=== PATIENT | female | born 1925 | race Caucasian/White ===

== ENCOUNTER 2016-05-06 09:57 | Observation (INO) | payer MEDICARE, OTHER ==
[~2016-05-06] VITALS: Ht 170.2 cm; Wt 73.1 kg
[~2016-05-06 09:57] MED LIST: AMOX-366 PO; ASPI325T32 PO; CEPH-512 PO; CHOL100043 PO; CITA20TA11 PO; DONE5TAB30 PO; LEVO75TA4 PO; METF500T4 PO; OMEP20CA11 PO; POLY17PO6 PO; PRAV40TA PO; PSYL3.4P5 PO
[2016-05-06] MEDS ORDERED: 0.9% Sodium Chloride 1,000 ML IV ONE ×2 (10:07→13:20)
[2016-05-06 10:10] VITALS: BP 102/43; PULSE 58; RESP 21; O2SAT 98
[2016-05-06] MEDS ORDERED: Ondansetron 2 mg/mL 2 mL Inj IV PRN (10:10)
--- NOTE | 2016-05-06 10:22 | ED.REPORT ---
HPI-General Illness Date of Service May 06, 2016 ED Provider: Isaiah Li MD 89-year-old female with a past medical history of TIA, DM2, hypertension, hyperlipidemia, recurrent UTIs, and dementia presents to the ED via EMS accompanied by her daughter/caregiver with a sudden onset dizziness, dyspnea and diaphoresis this morning. The diaphoresis lasted 1 hour before resolving. At onset of this the patient's daughter gave her nitro. She was also given a baby ASA this morning this AM. She also complained of nausea, upper back pain, and a chronic cough. Pt denies fever, chills, vomit and abd pain. She had no sx yesterday. Nursing Notes Stated Complaint: DIZZY, BACK PAIN Chief Complaint: General Complaint Nursing Notes Reviewed: Yes Allergies: Coded Allergies: morphine (Verified Allergy, Severe, Hives, vomiting, diarrhea, 12/23/14) Scheduled Aspirin (Aspirin) 325 Mg Tablet 325 MG PO QAM Cholecalciferol (Vitamin D3) (Vitamin D3) 2,000 Unit Capsule 2,000 UNITS PO QAM Ciprofloxacin (Ciprofloxacin) 250 Mg Tablet 250 MG PO MWF take in AM Citalopram (Citalopram) 20 Mg Tablet 20 MG PO HS Donepezil (Donepezil) 5 Mg Tablet 5 MG PO HS Isosorbide MN ER (Isosorbide MN ER) 30 Mg Tab.er.24h 30 MG PO QAM Levothyroxine (Levothyroxine) 50 Mcg Tablet 50 MCG PO DAILY Magnesium Chloride (Mag64) 64 Mg Tablet.er 128 MG PO BID Metformin (Metformin) 500 Mg Tablet 500 MG PO BIDWM lunch, dinner Metoprolol Succinate ER (Metoprolol Succinate ER) 25 Mg Tab.er.24h 25 MG PO QAM Omeprazole (Omeprazole) 20 Mg Capsule.dr 20 MG PO QAM Pravastatin (Pravastatin) 40 Mg Tablet 40 MG PO HS General Time Seen by MD: 10:01 Chief Complaint Breathing problem Hx Obtained From: Patient, Daughter, Other family..., Maitre D Arrived By: Ambulance Sudden in Onset?: Yes Onset Occurred: 1 - 4 hours ago Symptom Duration: Since onset Location: : Back Quality: Painful Severity: Current: Moderate Associated with: Denies: Fever, Headache, Vomiting Past Medical History Past Medical History Notes: Admission for L1 compression fracture December 2014 Echo December 2014 EF of 60-75% PCP: Dr. Sifuentes Past Medical History Alzheimer's Hypertension. Dementia. Hyperlipidemia. Frequent urinary tract infections. Hypothyroidism. Diabetes mellitus type 2, diet controlled. TIA. Zenker's diverticulum and gastric ulcers. Gastroesophageal reflux disease. Glaucoma. Coronary artery disease. 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 Right hip fracture surgery. Cataract surgery. Varicose vein stripping. Reports: Appendectomy, Cholecystectomy, Hysterectomy Smoking History Never Smoker Social History Alcohol Use: Denies alcohol use Drug Use: Denies drug use Other Social History: Lives with children (lives with daughter who is caregiver ) Ambulatory Status Walker Review of Systems Full Review of Systems Constitutional: Denies: Chills, Fever Respiratory: Reports: Non-productive cough (chronic), Shortness of breath Cardiovascular: Denies: Chest pain GI: Reports: Nausea, Denies: Abdominal pain, Diarrhea, Vomiting Musculoskeletal: Reports: Back pain Skin: Reports Diaphoresis Neurologic: Reports: Dizziness Complete sys rev & neg: except as marked. Physical Exam Vital Signs Vital Signs Date Time Temp Pulse Resp B/P Pulse Ox O2 Delivery O2 Flow Rate FiO2 05/06/16 10:51 51 18 130/74 94 Room Air 05/06/16 10:10 37.0 58 21 102/43 98 Room Air Initial VS: Reviewed Head / Eyes: Atraumatic, Normocephalic, PERRL General/Constitutional: Awake, Alert ENT: Mucous membranes moist Neck: Atraumatic, Full range of motion Respiratory / Chest: Breath sounds NL, Breath sounds = bilat, No respiratory distress, No rales, No rhonchi, No wheezing Cardiovascular: Regular rhythm, Heart sounds NL, No gallop, No murmurs, No rubs , Peripheral circulation NL Heart Rate / Rhythm: Positive: Bradycardia Abdomen: Soft, BS normoactive Tenderness/Guarding/Rebound: Positive: Tender LLQ... (reports that this is not new), Tender LUQ... (reports that this is not new) Organomegaly / Mass / Hernia: Negative: Hepatomegaly, Splenomegaly Back: Atraumatic, Full range of motion, No CVA tenderness Skin: Warm, Dry Neurologic: Oriented X3, Speech NL (conversant) coarse tremor which family reports is baseline Interpretation & Diagnostics Lab Results Interpretation Result Diagram: 05/06/16 1039 05/06/16 1017 Test 05/06/16 10:17 12/30/16 10:34 05/06/16 10:39 Sodium Level 140mEq/L (134-144) Potassium Level 4.2mEq/L (3.5-5.2) Chloride Level 104mEq/L (97-108) Carbon Dioxide Level 20mmol/L (18-29) Blood Urea Nitrogen 20mg/dL (8-27) Creatinine 0.93mg/dL (0.57-1.00) Estimat Glomerular Filtration Rate 81mL/min (>59) Glucose Level 172mg/dL (60-99) Calcium Level 9.4mg/dL (8.5-10.1) Magnesium Level 1.9mg/dL (1.6-2.6) Total Bilirubin 0.4mg/dL (0.0-1.2) Aspartate Amino Transf (AST/SGOT) 18U/L (0-50) Alanine Aminotransferase (ALT/SGPT) 11U/L (0-32) Alkaline Phosphatase 100U/L (25-165) Troponin T < 0.010ug/L (0.0-0.011) Total Protein 6.9g/dL (6.4-8.4) Albumin 3.9g/dL (3.4-5.0) Urine Color Yellow (YELLOW) Urine Appearance Hazy (CLEAR,HAZY) Urine pH 6.0 (5.0-8.0) Urine Specific [place] 1.020 (1.003-1.035) Urine Protein Negativemg/dL (NEG,TRACE) Urine Glucose (UA) Negativemg/dL (NEGATIVE) Urine Ketones Negativemg/dL (NEGATIVE) Urine Occult Blood Trace (NEGATIVE) Urine Nitrite Negative (NEGATIVE) Urine Bilirubin Negative (NEGATIVE) Urine Urobilinogen Normalmg/dL (NORMAL) Urine Leukocyte Esterase Moderate (NEGATIVE) Urine RBC 0-2/hpf (0-2) Urine WBC 6-10/hpf (0-5) Urine Epithelial Cells Few/hpf (NONE-MOD) Urine Crystals None seen (NONE SEEN) Urine Bacteria Few/hpf (NONE-FEW) Urine Hyaline Casts None/lpf (NONE) Urine Granular Casts None seen (NONE SEEN) Urine Waxy Casts None seen (NONE SEEN) Urine Red Blood Cell Casts None seen (NONE SEEN) Urine White Blood Cell Casts None seen (NONE SEEN) Urine Mucus None seen (None Seen) Urine Trichomonas None seen (NONE SEEN) Urine Yeast None (NONE SEEN) Urinalysis Comment Urine Culture Reflexed Indicated White Blood Count 6.4th/mm3 (3.8-10.1) Red Blood Count 4.12mil/mm3 (3.90-5.20) Hemoglobin 12.0g/dL (12.0-15.6) Hematocrit 36.9% (35.0-46.0) Mean Corpuscular Volume 89.6fL (81-100) Mean Corpuscular Hemoglobin 29.1pg (27.0-35.0) Mean Corpuscular Hemoglobin Concent 32.5% (32.0-37.0) Red Cell Distribution Width 13.6% (12.3-15.4) Platelet Count 165bil/L (150-400) Neutrophils (%) (Auto) 50.9% (40-74) Lymphocytes (%) (Auto) 35.1% (14-46) Monocytes (%) (Auto) 6.2% (4-12) Eosinophils (%) (Auto) 6.1% (0-5) Basophils (%) (Auto) 1.4% (0-3) Hold Luna Top Tube Received (Received) General Lab Results Interp 1: Labs reviewed ECG Interpretation ECG Interpretation: Anterior Q waves Low voltage inferiorly No change from previous 02/10/16 Time: 10:16 Interpreted by: ED physician Normal ECG Interpretation: Normal sinus rhythm Rhythm / Conduction: Bradycardia (53) ECG Interpretation: After onset of chest pain. Prolonged MN interval. No acute ST segment changes. Time: 11:20 Interpreted by: ED physician Normal ECG Interpretation: Normal sinus rhythm Rhythm / Conduction: Bradycardia (rate 51) X-Ray Chest Interpretation Chest Xray Interpretation: IMPRESSION: No acute cardiopulmonary disease process. Dictated by: Svitlana Montalvo MD, PhD on 05/06/2016 at 10:57 View: Portable, 1 view Interpretation / Wet Read by: Interpret - Radiologist Re-Eval/Medical Decision Med Decision/Clinical Course 89-year-old female with a near syncopal episode today at home. Has had borderline hypotension and bradycardia here in the emergency department. Did not have a fever or an elevated white blood cell count, lactate is mildly elevated urinalysis is suggestive of infection, chest x-ray negative. I suspect that her bradycardia which may be related to medications contributing to her relative hypotension. My understanding from her current home medication list she is on metoprolol and diltiazem for her atrial fibrillation. Urine and blood cultures have been obtained, we have started antibiotics for urinary tract infection she will be admitted to the hospitalist service. Time of Eval: 10:53 Patient Status: Condition unchanged Re-Evaluation/Progress Note: Now reporting slight chest pain. Pain started after ECG. Code status DNR with limited additional interventions per POLST form. Time of Eval: 11:38 Re-Evaluation/Progress Note: Pt with mild CP still present. Pt and family updated of labs. Time of Eval: 13:18 Patient Status: Condition improved, Pain improved (No CP) Re-Evaluation/Progress Note: Updated pt of labs, ECG and imaging results. Recommended admission. Pt understands and agrees with plan. All questions addressed. Consultation : Referral / Consult Name: Charles Billingsley MD Consulted With: Hospitalist Call Returned at: 14:36 Accounting Systems Manager: Will see patient, Agrees with eval, Agrees with plan, Accepts admit Counseled Regarding: Diagnosis, Lab results, Need for admission Discharge & Departure Primary Impression: Sepsis Sepsis type: sepsis due to unspecified organism Qualified Code: A41.9 - Sepsis, unspecified organism Additional Impressions: Urinary tract infection Urinary tract infection type: site unspecified Hematuria presence: without hematuria Qualified Code: N39.0 - Urinary tract infection, site not specified Bradycardia Disposition: ADMITTED TO HOSPITAL Discharge Condition All VS Reviewed: Yes Condition: Improved Referrals: José Miguel Sifuentes MD (PCP) Scribe Attestation Portions of this note were transcribed by Zenaida Rowland. I, (Dr. Li) personally performed the history, physical exam and medical decision-making; I reviewed and confirmed the accuracy of the information in the transcribed note. Signed by: Zenaida Rowland. 05/06/2016, 1436 copies to: José Miguel Sifuentes MD, Donald L MD May 06, 2016 10:22 Zenaida Rowland May 06, 2016 10:31
[2016-05-06 10:51] VITALS: BP 130/74; PULSE 51; RESP 18; O2SAT 94
[2016-05-06 10:52] LABS: BASOPHILS % (AUTO) 1.4 % (0-3); EOSINOPHILS % (AUTO) 6.1 % (0-5); MONOCYTES % (AUTO) 6.2 % (4-12); Mean Corpuscular Hemoglobin 29.1 pg (27.0-35.0); Mean Corpuscular Volume 89.6 fL (81-100); NEUTROPHILS % (AUTO) 50.9 % (40-74); Platelet Count 165 bil/L (150-400)
[2016-05-06 10:54] LABS: APPEARANCE,URINE HAZY (CLEAR,HAZY); COLOR,URINE YELLOW (YELLOW); OCCULT BLOOD,URINE TRACE (NEGATIVE)
[2016-05-06 10:55] LABS: UROBILINOGEN,URINE NORMAL (NORMAL)
[2016-05-06 10:57] LABS: Magnesium 1.9 mg/dL (1.6-2.6)
--- NOTE | 2016-05-06 10:59 | DRSVH ---
PROCEDURE: X-RAY CHEST ONE VIEW, PORTABLE ([id number]) INDICATIONS: dyspnea TECHNIQUE: One view of the chest was acquired. COMPARISON: [facility], CR, XR CHEST 1VW (PORTABLE), 02/10/2016, 7:25. FINDINGS: Surgical changes and devices: Cholecystectomy clips Lungs and pleura: No pleural effusions or pneumothorax. Lungs are clear. Mediastinum: Mediastinal contours appear normal. Heart size is normal. Bones and chest wall: Chronic appearing left humerus fracture is noted. No suspicious bony lesions. Overlying soft tissues appear unremarkable. IMPRESSION: No acute cardiopulmonary disease process. Dictated by: Svitlana Montalvo MD, PhD on 05/06/2016 at 10:57 Approved by: Svitlana Montalvo MD, PhD on 05/06/2016 at 10:57
[2016-05-06 11:01] LABS: TROPONIN T < 0.010 ug/L (0.0-0.011)
[2016-05-06] MEDS ORDERED: cefTRIAXone Inj 2,000 MG in IV Premix 1 EACH IV ONE (11:40)
[2016-05-06] MEDS ORDERED: 0.9% Sodium Chloride 500 ML IV ONE (11:40)
[2016-05-06] MEDS ORDERED: LEVO50TA6 PO (13:55)
[2016-05-06] MEDS ORDERED: ISOS30TA4 PO (13:55)
[2016-05-06] MEDS ORDERED: CIPR250T3 PO (13:55)
[2016-05-06] MEDS ORDERED: METO25TA99 PO (13:55)
[2016-05-06] MEDS ORDERED: MAGN64TA7 PO (13:55)
[2016-05-06] MEDS ORDERED: CHOL200047 PO (13:55)
[2016-05-06] MEDS ORDERED: Ondansetron 2 mg/mL 2 mL Inj IVPUSH PRN (15:00)
[2016-05-06] MEDS ORDERED: Polyethylene Glycol (PEG) 17 Gm Powder PO PRN (15:00)
[2016-05-06] MEDS ORDERED: Alum-Mag Hydrox-Simeth 30 mL Suspension PO PRN (15:00)
[2016-05-06 15:13] VITALS: BP 92/30; PULSE 68; RESP 16; O2SAT 99
[2016-05-06 15:41] VITALS: BP 95/56; PULSE 55; PULSE 67; RESP 22; O2SAT 99
[2016-05-06] MEDS: 0.9% Sodium Chloride 1,000 ML IV SCH (15:43)
[2016-05-06 16:09] VITALS: BP_SYST 104; BP_SYST 87; BP_DIAS 53; BP_DIAS 54
--- NOTE | 2016-05-06 16:28 | PCM.HPMED ---
Subjective Date of Service May 06, 2016 Primary Provider: Admitting Physician: Charles Billingsley MD Primary Care Physician: José Miguel Sifuentes MD Attending Physician: Charles Billingsley MD Admit Status: From the Emergency Department, Full Admit, Admit to [facility] Team, Remote Telemetry Chief Complaint: Bradycardia and possible sepsis. Syncope this morning. History of Present Illness: This is an 89-year-old female who is feeling well until this morning. She got up out of bed a couple steps and then had a collapse. She cannot really say if she completely passed out or not. She has a significant cognitive impairment with a history of dementia. She denies remembering any chest pain or palpitations before. She denies any chest pain or dyspnea now. In the ED she is a mildly elevated lactic acid and a positive urine dip. She denies any hematuria or dysuria. She also denies recent fevers or chills. She denies difficulty with her appetite. No recent lightheadedness although she was orthostatic in the ED. She does not feel thirsty or dehydrated. She denies recent weakness. No unilateral leg or arm weakness. No fevers or chills. Review of Systems: No headache. She denies head or neck pain. No visual changes. She has not have any hearing issues. She has had some rhinorrhea and a light cough recently. No chest pain. No recent diarrhea also reviewed and otherwise negative except as noted in history of present illness. Allergies Coded Allergies: morphine (Verified Allergy, Severe, Hives, vomiting, diarrhea, 12/23/14) Home Medications Aspirin (Aspirin) 325 Mg Tablet 325 MG PO QAM Cholecalciferol (Vitamin D3) (Vitamin D3) 2,000 Unit Capsule 2,000 UNITS PO QAM Ciprofloxacin (Ciprofloxacin) 250 Mg Tablet 250 MG PO MWF take in AM Citalopram (Citalopram) 20 Mg Tablet 20 MG PO HS Donepezil (Donepezil) 5 Mg Tablet 5 MG PO HS Isosorbide MN ER (Isosorbide MN ER) 30 Mg Tab.er.24h 30 MG PO QAM Levothyroxine (Levothyroxine) 50 Mcg Tablet 50 MCG PO DAILY Magnesium Chloride (Mag64) 64 Mg Tablet.er 128 MG PO BID Metformin (Metformin) 500 Mg Tablet 500 MG PO BIDWM lunch, dinner Metoprolol Succinate ER (Metoprolol Succinate ER) 25 Mg Tab.er.24h 25 MG PO QAM Omeprazole (Omeprazole) 20 Mg Capsule.dr 20 MG PO QAM Pravastatin (Pravastatin) 40 Mg Tablet 40 MG PO HS PMH 1. CAD. 2. TIA. 3. Diabetes mellitus 2. 4. Recurrent UTI. 5. Dementia. Surgical History 1. Right hip fracture, repair 2. Billroth II. 3. Appendectomy. 4. Cholecystectomy Family History Negative for CAD Social History Hx Alcohol Use: No Hx Substance Use: No Hx Tobacco Use: No Smoking Status: Never Smoker Living Arrangement: with Family Exam Vital Signs Vital Sign - Last Date Time Temp Pulse Resp B/P Pulse Ox O2 Delivery O2 Flow Rate FiO2 05/06/16 16:09 104/54 87/53 05/06/16 15:41 67 05/06/16 15:41 36.8 22 99 Room Air Exam Alert and oriented person and place. 1916.. No distress. Fluent speech. Normal skull. Normal nose and ears Anicteric sclerae, symmetric pupils Oropharynx unremarkable no droop Neck supple normal thyroid no adenopathy Lungs are clear and normal effort. Heart is regular without murmur Abdomen soft nondistended of focal tenderness getting rebound. Extremities are free of edema. Good radial. Pulses. Skin is free of rash or lesions. No petechiae. Joints Deformed Muscles with Normal Strength. Cranial Nerves Are Grossly Intact Not Anxious Lab and Diagnostics Result Diagram: 05/06/16 1039 05/06/16 1017 Assessment & Plan 1. Sepsis. This is based on hypotension as well as evidence of acute renal failure. POA. The patient will be treated for her primary infection source urine tract infection with ceftriaxone and fluid resuscitated. We will follow serial lactic acid. 2. Urinary tract infection versus polynephritis. POA. Blood cultures 2. Fluid resuscitate ceftriaxone. 3. CAD. POA. Follow clinically. 4. DM 2. POA. Correctional lispro old oral lesions. Patient is DO NOT RESUSCITATE, confirmed with her and her pulse today. Inpatient status with an estimated length of stay of 2 nights Pain Evaluation: Adequate Pain Control Resuscitation Status: DNR/DNI:Do Not Resuscitate/Intubate Time spent 40 minute Charles Billingsley MD May 06, 2016 16:27
[2016-05-06] MEDS ORDERED: Glucose 40% Oral Gel 15 Gm Tube PO PRN (16:30)
--- NOTE | 2016-05-06 16:36 | NUR ---
admit to [facility] Received report from Galen LUU in the ER. Pt transferred via stretcher from ER to room 1016 on [facility]. VS as documented, placed on tele, SB/SR 1st degree AVB, rate 55-60. Orthostatic BPs checked with getting up to BSC, lying 104/54, standing 87/53, MD aware. Pt reports mild dizziness with standing to use BSC, has tremor at baseline, needs at least 1PA with FWW for transfer. IVF started per orders. Oriented to room and call light. Aruna bed alarm placed for safety and pt educated on use of call light for assistance with getting OOB or any other needs, verbalizes understanding. Call light in reach, will continue to monitor. Care ongoing. Addendum: 05/06/16 at 1704 by DONNELL LEDEZMA RN Bedside BG 185. Report to Jay LUU who will resume primary care of pt remainder of shift. Care continues.
[2016-05-06] MEDS: Heparin 5,000 Unit/mL Inj SUBQ SCH (16:51)
[2016-05-06] MEDS: Insulin LISPRO 300 Unit/3 mL Inj SUBQ SCH ×2 (17:36→23:00)
[2016-05-06 20:32] VITALS: BP 118/61; PULSE 56; O2SAT 97
[2016-05-07 00:03] VITALS: BP 126/73; PULSE 58; O2SAT 97
[2016-05-07] MEDS: Heparin 5,000 Unit/mL Inj SUBQ SCH ×4 (01:19→23:49)
[2016-05-07] MEDS: 0.9% Sodium Chloride 1,000 ML IV SCH ×2 (01:27→11:16)
[2016-05-07 05:04] VITALS: PULSE 56
[2016-05-07 05:09] VITALS: BP 146/74; PULSE 62; O2SAT 97
--- NOTE | 2016-05-07 06:41 | NUR ---
Activity Up 1PA FWW without c/o dizziness. Tolerating with mild reports of VARNER. Currently resting without any complaints.
[2016-05-07] MEDS: Insulin LISPRO 300 Unit/3 mL Inj SUBQ SCH ×4 (08:00→20:26)
[2016-05-07] MEDS ORDERED: cefTRIAXone Inj 1,000 MG in IV Premix 1 EACH IV SCH (08:30)
--- NOTE | 2016-05-07 08:36 | NUR ---
Evaluation completed. Please go to "Notes" then click on "Assessments and Notes" (bottom left corner of screen). Then select appropriate discipline tab on top of screen. No further skilled therapy needed. Pt at her PLOF. Please continue to mobilize with nursing staff.
[2016-05-07 08:55] LABS: BASOPHILS % (AUTO) 0.7 % (0-3); EOSINOPHILS % (AUTO) 5.9 % (0-5); MONOCYTES % (AUTO) 7.5 % (4-12); Mean Corpuscular Hemoglobin 28.9 pg (27.0-35.0); Mean Corpuscular Volume 88.4 fL (81-100); NEUTROPHILS % (AUTO) 50.9 % (40-74); Platelet Count 136 bil/L (150-400)
[2016-05-07 09:07] VITALS: PULSE 67
[2016-05-07 11:41] VITALS: BP 152/84; PULSE 59; O2SAT 98
--- NOTE | 2016-05-07 15:08 | NUR ---
Observation information provided to pt and her DIL Jose who is at bedside.
[2016-05-07 20:30] VITALS: BP 135/77; PULSE 66; RESP 20; O2SAT 94
--- NOTE | 2016-05-07 20:40 | PCM.PNMED ---
Subjective Date of Service May 07, 2016 Subjective No complaints of chest pain, dyspnea, nausea vomiting. Patient does not recall what brought her here but states she feels well Exam Vital Signs Vital Sign - Last Date Time Temp Pulse Resp B/P Pulse Ox O2 Delivery O2 Flow Rate FiO2 05/07/16 11:41 36.7 59 152/84 98 Room Air 05/06/16 15:41 22 Intake and Output 05/06/16 05/06/16 05/07/16 Cumulative From/Thru 15:00 23:00 07:00 05/06/16 15:41 - 05/07/16 06:36 Intake Total 400 ml 1625 ml 2025 ml Output Total 800 ml 1300 ml 2100 ml Balance -400 ml 325 ml -75 ml Intake Oral 400 ml 200 ml 600 ml IV Total 1425 ml 1425 ml Output Urine Total 800 ml 1300 ml 2100 ml # Bowel Movements 0 0 0 Exam Gen.- A+ Responsive sitting up in a chair, no apparent distress. Eyes- open conjunctiva clear, pupils equal nonicteric ENT- ears normal, nose normal Neck- supple/trach midline CVS- RRR Lungs - no hypoxemia, exophytic muscle usage or evidence of respiratory distress GI- Flat Musc- moving 4 no obvious deformity Neuro- cranial nerves II through XII intact to gross examination, nonfocal Skin- warm and dry Psych- pleasant and appropriate, Lab and Diagnostics Result Diagram: 05/07/1664705/07/1648 Assessment & Plan 89-year-old female presents with abscess syndrome without an apparent source. She received Rocephin and IV fluids and seems to have recovered nicely. Stopping the Rocephin and the fluids and we will get her reassess tomorrow. But it appears that she would be dischargeable. Probable statin viral syndrome versus arrhythmia Sepsis. hypotension and encephalopathy seems to have resolved this has resolved. encephalopathy- present on admission seems to have resolved UTI- ruled out by clear UA and negative micro-thus far. Stopping Rocephin, resuming outpatient Augmentin possibly the urine is clear because patient was already on this medication it is not clear why this is on the Medrol Dosepak. CAD. POA. Follow clinically.asymptomatic no action DM 2. POA. Correctional lispro old oral lesions.highest blood sugar is212, resuming metformin prophylaxis-DVT heparin/SCDs, GI not indicated disposition- Patient is DO NOT RESUSCITATE, confirmed with her and her Blood pressure has recovered to assess the patient's mentation and perhaps she had a partially treated UTI which resulted in the negative urinalysis and micro. We will finish treating with a 10 day course of Augmentin as this would represent sepsis and needs a long and complicated UTI VTE Mechanical Devices: Intermittant Pneumatic CD Resuscitation Status: DNR/DNI:Do Not Resuscitate/Intubate Shade Harper MD May 07, 2016 20:40
[2016-05-07] MEDS ORDERED: Amoxicillin-Clav 875-125 mg Tablet PO SCH (20:50)
[2016-05-07] MEDS: Lactobacillus Rhamnosus 10 Bil Unit Capsule PO SCH (23:39)
[2016-05-07] MEDS: Amoxicillin-Clav 875-125 mg Tablet PO SCH (23:39)
[2016-05-08 01:38] VITALS: BP 128/66; PULSE 69; RESP 18; O2SAT 95
[2016-05-08 05:02] VITALS: PULSE 62
[2016-05-08 06:03] VITALS: PULSE 55
--- NOTE | 2016-05-08 06:36 | NUR ---
Pruritus Pt c/o her whole R arm itching where an Hansel wrap was placed over her IV. Wrap removed and Lotion applied. Pt resting on and off, able to make needs known, denies any pain.
[2016-05-08 06:43] VITALS: BP 142/73; PULSE 62; RESP 18; O2SAT 95
[2016-05-08 08:00] VITALS: PULSE 54
[2016-05-08] MEDS ORDERED: Amoxicillin-Clav 500-125 mg Tablet PO SCH (08:00)
[2016-05-08] MEDS: Insulin LISPRO 300 Unit/3 mL Inj SUBQ SCH (08:00)
[2016-05-08] MEDS ORDERED: Magnesium Chloride SR 64 mg ER24 Tablet PO SCH (08:30)
[2016-05-08] MEDS ORDERED: Isosorbide Mononitrate 30 mg ER24 Tablet PO SCH (08:30)
[2016-05-08] MEDS ORDERED: MeTOProlol XL 25 mg ER24 Tablet PO SCH (08:30)
[2016-05-08] MEDS: Heparin 5,000 Unit/mL Inj SUBQ SCH (08:31)
[2016-05-08] MEDS: Lactobacillus Rhamnosus 10 Bil Unit Capsule PO SCH (08:32)
[2016-05-08] MEDS: Amoxicillin-Clav 875-125 mg Tablet PO SCH (08:32)
--- NOTE | 2016-05-08 10:26 | PCM.DIMED ---
Discharge Instructions Date of Service May 08, 2016 Dates of Hospitalization May 06, 2016 at 14:58 Discharge Diagnosis Discharge Diagnosis - Sepsis Diet Heart Healthy Call your provider Fever or Chills, Shortness of breath, Bleeding, Chest pain, Vomitting, Excessive diarrhea, Weakness (unilateral) Patient Instructions Follow-up with PCP in: 2 weeks Yury Manuel MD May 08, 2016 10:26
[2016-05-08] MEDS ORDERED: AGM875T PO (10:28)
--- NOTE | 2016-05-08 10:36 | PCM.DC.MED ---
Discharge Summary Date of Service May 08, 2016 Dates of Hospitalization Date of Hospital Admission May 06, 2016 at 14:58 Date of Discharge: May 08, 2016 Providers: Admitting Physician: Charles Billingsley MD Primary Care Physician: José Miguel Sifuentes MD Attending Physician: Charles Billingsley MD Diagnosis at Time of Discharge Diagnosis at Time of Discharge - Sepsis Procedures XRay, CTs & MRIs CXR: No acute cardiopulmonary disease process. Brief History This is an 89-year-old female who is feeling well until this morning. She got up out of bed a couple steps and then had a collapse. She cannot really say if she completely passed out or not. She has a significant cognitive impairment with a history of dementia. She denies remembering any chest pain or palpitations before. She denies any chest pain or dyspnea now. In the ED she is a mildly elevated lactic acid and a positive urine dip. She denies any hematuria or dysuria. She also denies recent fevers or chills. She denies difficulty with her appetite. No recent lightheadedness although she was orthostatic in the ED. She does not feel thirsty or dehydrated. She denies recent weakness. No unilateral leg or arm weakness. No fevers or chills. Hospital Course Sepsis. hypotension and encephalopathy seems to have resolved this has resolved. - She is improving clinically - Will complete 10 days course of Augmentin encephalopathy- present on admission seems to have resolved UTI- ruled out by clear UA and negative micro-thus far. Stopping Rocephin, resuming outpatient Augmentin possibly the urine is clear because patient was already on this medication it is not clear why this is on the Medrol Dosepak. CAD. POA. Follow clinically.asymptomatic no action DM 2. POA. 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 Eyes- open conjunctiva clear, pupils equal nonicteric ENT- ears normal, nose normal Neck- supple/trach midline CVS- RRR Lungs - no hypoxemia, exophytic muscle usage or evidence of respiratory distress GI- Flat Musc- moving 4 no obvious deformity Neuro- cranial nerves II through XII intact to gross examination, nonfocal Skin- warm and dry Psych- pleasant and appropriate, Test 05/06/16 10:17 05/06/16 10:34 05/06/16 10:39 05/06/16 18:10 Magnesium Level 1.9mg/dL (1.6-2.6) Troponin T < 0.010ug/L (0.0-0.011) Urine Color Yellow (YELLOW) Urine Appearance Hazy (CLEAR,HAZY) Urine pH 6.0 (5.0-8.0) Urine Specific [place] 1.020 (1.003-1.035) Urine Protein Negativemg/dL (NEG,TRACE) Urine Glucose (UA) Negativemg/dL (NEGATIVE) Urine Ketones Negativemg/dL (NEGATIVE) Urine Occult Blood Trace (NEGATIVE) Urine Nitrite Negative (NEGATIVE) Urine Bilirubin Negative (NEGATIVE) Urine Urobilinogen Normalmg/dL (NORMAL) Urine Leukocyte Esterase Moderate (NEGATIVE) Urine RBC 0-2/hpf (0-2) Urine WBC 6-10/hpf (0-5) Urine Epithelial Cells Few/hpf (NONE-MOD) Urine Crystals None seen (NONE SEEN) Urine Bacteria Few/hpf (NONE-FEW) Urine Hyaline Casts None/lpf (NONE) Urine Granular Casts None seen (NONE SEEN) Urine Waxy Casts None seen (NONE SEEN) Urine Red Blood Cell Casts None seen (NONE SEEN) Urine White Blood Cell Casts None seen (NONE SEEN) Urine Mucus None seen (None Seen) Urine Trichomonas None seen (NONE SEEN) Urine Yeast None (NONE SEEN) Urinalysis Comment Urine Culture Reflexed Indicated Hemoglobin A1c 7.6% (4.8-5.6) Hold Luna Top Tube Received (Received) Lactic Acid Level 1.3mmol/L (0.4-2.0) Test 05/07/16 06:48 05/08/16 03:05 White Blood Count 5.8th/mm3 (3.8-10.1) Red Blood Count 3.87mil/mm3 (3.90-5.20) Hemoglobin 11.2g/dL (12.0-15.6) Hematocrit 34.2% (35.0-46.0) Mean Corpuscular Volume 88.4fL (81-100) Mean Corpuscular Hemoglobin 28.9pg (27.0-35.0) Mean Corpuscular Hemoglobin Concent 32.7% (32.0-37.0) Red Cell Distribution Width 13.4% (12.3-15.4) Platelet Count 136bil/L (150-400) Neutrophils (%) (Auto) 50.9% (40-74) Lymphocytes (%) (Auto) 34.7% (14-46) Monocytes (%) (Auto) 7.5% (4-12) Eosinophils (%) (Auto) 5.9% (0-5) Basophils (%) (Auto) 0.7% (0-3) Sodium Level 143mEq/L (134-144) Potassium Level 4.2mEq/L (3.5-5.2) Chloride Level 110mEq/L (97-108) Carbon Dioxide Level 20mmol/L (18-29) Blood Urea Nitrogen 13mg/dL (8-27) Creatinine 0.86mg/dL (0.57-1.00) Estimat Glomerular Filtration Rate 89mL/min (>59) Glucose Level 118mg/dL (60-99) Calcium Level 8.7mg/dL (8.5-10.1) Total Bilirubin 0.3mg/dL (0.0-1.2) Aspartate Amino Transf (AST/SGOT) 14U/L (0-50) Alanine Aminotransferase (ALT/SGPT) 9U/L (0-32) Alkaline Phosphatase 83U/L (25-165) Total Protein 5.9g/dL (6.4-8.4) Albumin 3.1g/dL (3.4-5.0) Procalcitonin < 0.05ng/mL (See Comment) Discharge Medications Discharge Medications Amoxicillin/Clav K 875-125 mg (Amoxicillin/Clav K 875-125 mg) 875 Mg Tab 1 TAB PO BID Prescribed by: YURY PIZARRO MD Aspirin (Aspirin) 325 Mg Tablet 325 MG PO QAM (Reported) Cholecalciferol (Vitamin D3) (Vitamin D3) 2,000 Unit Capsule 2,000 UNITS PO QAM (Reported) Citalopram (Citalopram) 20 Mg Tablet 20 MG PO HS (Reported) Donepezil (Donepezil) 5 Mg Tablet 5 MG PO HS (Reported) Isosorbide MN ER (Isosorbide MN ER) 30 Mg Tab.er.24h 30 MG PO QAM (Reported) Levothyroxine (Levothyroxine) 50 Mcg Tablet 50 MCG PO DAILY (Reported) Magnesium Chloride (Mag64) 64 Mg Tablet.er 128 MG PO BID (Reported) Metformin (Metformin) 500 Mg Tablet 500 MG PO BIDWM (Reported) lunch, dinner Metoprolol Succinate ER (Metoprolol Succinate ER) 25 Mg Tab.er.24h 25 MG PO QAM (Reported) Omeprazole (Omeprazole) 20 Mg Capsule.dr 20 MG PO QAM (Reported) Pravastatin (Pravastatin) 40 Mg Tablet 40 MG PO HS (Reported) Followup Plan Discharge Diet: Heart Healthy Follow-up with PCP in: 2 weeks Yury Pizarro MD May 08, 2016 10:36 Yury Pizarro MD May 08, 2016 10:36
--- NOTE | 2016-05-08 11:18 | NUR ---
Ambulate Did full lap around the unit with only stand by assistance and front wheel walker. Pt was steady on her feet and didnt show any signs or complaints of dizziness or unbalance. Pt looks to be at baseline per patient
--- NOTE | 2016-05-08 12:04 | NUR ---
Discharge. Pt was given discharge instructions, which was explained fully to her. Pt had no questions or concerns. Son arrived and she ambulated out to transport vehicle with nursing stand by assistance and walker. Pt had no complaints of discomfort or pain
--- NOTE | 2016-05-08 13:42 | NUR ---
Social Work Note: Brief Note/ Discharge Data& Assessment: Per pt is medically ready for discharge. Omayra Brand is a 89 year old female under observation for sepsis and bradycardia as well as UTI. Per pt is medically improved and ready for discharge. [place] [address] with her daughter who helps care for her. Pt has Medicare and [place] [employer] supplement. Pt sees José Miguel Lund MD for primary care. PT has cleared pt to go home with her daughter. Pt uses a walker at baseline. Pt daughter drives her to any appointments. Pt son to transport pt home today. SW discussed Home Health services with pt daughter, pt daughter declined explaining that pt gets very anxious when people are in her home. SW spoke with pt daughter Jose on the phone briefly prior to pt discharging, pt daughter had to end phone call to contact pt son regarding pt discharge. SW was to follow up with pt son Fredy regarding pt baseline and assessing for any unmet needs when he came to transport pt home. Pt and pt son left the hospital prior to SW meeting with them at bedside. SW left voicemail for pt son and daughter to complete assessment, no phone call back received. Plan: Pt to discharge home with daughter/caregiver via POV. Pt daughter declined any other needs. No other needs identified based on information collected from daughter during earlier conversation. RG [place]
== END 2016-05-08 11:45 | disposition home or self-care (01) ==
LOC: SED 09:57 → EDBD 09:57 → OSC 14:58
PROVIDERS: ADMIT Hospitalist; ATTEND Hospitalist
DX: A41.9 Sepsis, unspecified organism (principal); I25.10 Atherosclerotic heart disease of native coronary artery without angina pectoris; E11.9 Type 2 diabetes mellitus without complications; Z79.82 Long term (current) use of aspirin; F03.90 Unspecified dementia, unspecified severity, without behavioral disturbance, psychotic disturbance, mood disturbance, and anxiety
CPT/HCPCS: 36415; 71010; 80053; 81000; 82308; 83036; 83605; 83735; 84484; 85025; 87040; 87086; 87088; 96361; 96365; 96375; 97001; 99285; J0696; J1644; J1815; J2405; J7030; J7040